=== PATIENT | male | born 1955 | race Caucasian/White ===

== ENCOUNTER 2021-08-23 07:57 | Outpatient (CLI) | payer MEDICARE, SELFPAY ==
--- NOTE | 2021-08-23 08:11 | CT_ITS ---
WS: [id number] CT ABDOMEN CONTRAST TECHNIQUE: Contrast enhanced CT of the abdomen with coronal and sagittal reformatted images. CLINICAL INFORMATION: DYSPHAGIA/GENERALIZED ABDOMINAL PAIN COMPARISON: None. DLP: 1220.[address] scans at [facility] use at least one of these dose optimization techniques: automated e xposure control; mA and/or kV adjustment per patient size (includes targeted exams where dose is matc hed to clinical indication); or iterative reconstruction. FINDINGS: Mild hepatomegaly. Diffuse fatty infiltration liver. Low-attenuation lesions in the liver likely hepa tic cysts the largest right hepatic lobe measuring 2.1 CM. Lung bases are well aerated. Small esophag eal hiatal hernia. Normal spleen. Adrenal glands are normal. Normal renal parenchymal enhancement. No hydronephrosis. Normal pancreas. Gallbladder is contracted. Normal portal vein and splenic vein. Normal caliber abdom inal aorta. Mild aortic calcification. Hypertrophic changes lower thoracic spine. CT/CT abdomen w con* [id number] IMPRESSION: 1. Mild hepatomegaly with diffuse fatty infiltration of the liver. 2. Two Low-attenuation hepatic lesions likely hepatic cysts the largest right hepatic lobe measuring 2.1 CM. 3. Small esophageal hiatal hernia. 4. No hydronephrosis in either kidney. 5. Normal caliber abdominal aorta. 6. No other significant findings.
[2021-08-23 09:24] LABS: Blood Urea Nitrogen 13 mg/dL (8-23)
[2021-08-23] MEDS: iohexol 300 mg/mL 100 mL Btl IV (09:48)
[2021-08-23] MEDS: iohexol 300 mg/mL 50 mL Btl IV (09:48)
== END 2021-08-23 07:58 | disposition home or self-care (01) ==
LOC: RAD 08:07
PROVIDERS: PCP Family Medicine; Visit Provider Family Medicine
DX: R13.10 Dysphagia, unspecified (principal); R10.84 Generalized abdominal pain; R16.0 Hepatomegaly, not elsewhere classified; K76.0 Fatty (change of) liver, not elsewhere classified; K76.9 Liver disease, unspecified
CPT/HCPCS: 74160; 82565; 84520

== ENCOUNTER 2022-04-16 07:42 | Outpatient (CLI) | payer MEDICARE, SELFPAY ==
--- NOTE | 2022-04-16 07:53 | FL_ITS ---
WS: [id number] UPPER GI WITH SMALL BOWEL FOLLOW-THROUGH HISTORY: DYSPHAGIA/GENERALIZED ABDOMINAL PAIN COMPARISON: None available. FLUOROSCOPIC TIME: 3.3 minutes. # of spot films: 19 Double contrast upper GI examination was performed. Patient swallowed the barium mixture with no difficulty. No esophageal stricture or mass. No hilar he rnia or reflux was demonstrated. Stomach distended well with contrast. Duodenal bulb was distensible pliable. No ulceration or mass. Small bowel follow-through. Barium transited the small bowel at 90 minutes. No small bowel strictures or dilatation. No mass or o bstruction. Normal appearance of the right lower quadrant. Appendix not identified. FL/FL upper GI smallbowel series IMPRESSION: 1. Unremarkable upper GI examination. 2. Unremarkable small bowel follow-through.
== END 2022-04-16 07:43 | disposition home or self-care (01) ==
LOC: RAD 07:43
PROVIDERS: PCP Family Medicine; Visit Provider Family Medicine
DX: R13.10 Dysphagia, unspecified (principal); R10.84 Generalized abdominal pain
CPT/HCPCS: 74240; 74248

== ENCOUNTER 2022-06-11 08:29 | Outpatient (CLI) | payer MEDICARE, SELFPAY ==
[2022-06-11] MEDS: iohexol 350 mg/mL 100 mL Btl PO (08:53)
--- NOTE | 2022-06-11 09:00 | CT_ITS ---
WS: [id number] CT ABDOMEN PELVIS TECHNIQUE: Contrast-enhanced CT of the abdomen and pelvis with coronal and sagittal reformatted image s. CLINICAL INFORMATION: abd pain/ liver lesions on CT 9 months ago COMPARISON: CT August 23 2021 DLP: 2323.[address] scans at [facility] use at least one of these dose optimization techniques: automated e xposure control; mA and/or kV adjustment per patient size (includes targeted exams where dose is matc hed to clinical indication); or iterative reconstruction. FINDINGS: Previously described low-attenuation hepatic lesions the largest in the RIGHT hepatic lobe measuring 2.1 cm appear unchanged compared to the prior study. Stable smaller lesion LEFT hepatic lobe measurin g 1.2 CM. These are unchanged on the delayed imaging and likely represent hepatic cysts. Ultrasound c ould be obtained for additional evaluation. Small esophageal hiatal hernia. Lung bases are well aerated. Normal spleen. Adrenal glands are normal . Normal renal parenchymal enhancement. No hydronephrosis. Normal excretion on the delayed images. Prostate calcification. Sigmoid diverticulosis. Tiny fat-containing umbilical hernia. Normal portal v ein and splenic vein. Normal caliber abdominal aorta. No abdominal or pelvic lymphadenopathy. Disc sp joanne narrowing worse L5-S1. CT/CT abdomen pelvis w con* [id number] IMPRESSION: 1. Hepatomegaly with diffuse fatty infiltration liver. 2. Previously described low-attenuation hepatic lesions the largest in the RIG HT hepatic lobe measuring 2.1 cm appear unchanged compared to the prior study. Stable smaller lesion LEFT hepatic lobe measuring 1.2 CM. These are unchanged o n the delayed imaging and likely represent hepatic cysts. Ultrasound could be o btained for additional evaluation. 3. Small esophageal hiatal hernia. 4. Sigmoid diverticulosis. 5. Tiny fat-containing umbilical hernia.
[2022-06-11 09:47] LABS: Blood Urea Nitrogen 10 mg/dL (8-23); Glomerular Filtration Rate 74.8 mL/min (90-130)
[2022-06-11] MEDS: iohexol 350 mg/mL 100 mL Btl IV (10:02)
== END 2022-06-11 08:30 | disposition home or self-care (01) ==
LOC: RAD 08:30
PROVIDERS: PCP Family Medicine; Visit Provider Family Medicine
DX: R16.0 Hepatomegaly, not elsewhere classified (principal); K57.30 Diverticulosis of large intestine without perforation or abscess without bleeding; K42.9 Umbilical hernia without obstruction or gangrene; K76.0 Fatty (change of) liver, not elsewhere classified; K44.9 Diaphragmatic hernia without obstruction or gangrene; K76.9 Liver disease, unspecified
CPT/HCPCS: 74177; 82565; 84520

== ENCOUNTER → 2022-10-24 08:20 | Outpatient (BNVA) | payer MEDICARE, SELFPAY | PROVIDERS: PCP Family Medicine; Visit Provider Family Medicine | DX: R53.83 Other fatigue (principal); R16.0 Hepatomegaly, not elsewhere classified; E78.5 Hyperlipidemia, unspecified | CPT/HCPCS: 80053; 80061; 82607; 84403; 84443; 85025; 86140 ==

== ENCOUNTER → 2022-11-09 09:00 | Outpatient (BNVA) | payer MEDICARE, SELFPAY | PROVIDERS: PCP Family Medicine; Visit Provider Family Medicine | DX: R73.9 Hyperglycemia, unspecified (principal) | CPT/HCPCS: 83036 ==

== ENCOUNTER 2024-05-11 14:12 | Outpatient (CLI) | payer MEDICARE, SELFPAY ==
--- NOTE | 2024-05-11 14:17 | XRR_ITS ---
PROCEDURE INFORMATION: Exam: XR Right Shoulder Exam date and time: 05/11/2024 2:25 PM Age: 69 years old Clinical indication: Right; Prior surgery; Surgery date: 6+ months; Surgery type: Rotator cuff; Patient HX: Pain in shoulder that radiates down the arm, sudden onset after playing with dog. ; Additional info: Right shoulder pain TECHNIQUE: Imaging protocol: Radiologic exam of the right shoulder. Views: 2 or more views. COMPARISON: No relevant prior studies available. FINDINGS: Bones/joints: Marked acromioclavicular and mild glenohumeral narrowing and spurring. No. Two suture anchors in the humeral head. Soft tissues: Normal. Other findings: . XR/XR shoulder RT min 2V* [id number] IMPRESSION: No acute findings.
== END 2024-05-11 14:13 | disposition home or self-care (01) ==
LOC: RAD 14:14
PROVIDERS: PCP Family Medicine; Visit Provider Family Medicine
DX: M19.011 Primary osteoarthritis, right shoulder (principal); Z98.890 Other specified postprocedural states
CPT/HCPCS: 73030

== ENCOUNTER 2024-05-29 07:07 | Outpatient (CLI) | payer MEDICARE, SELFPAY ==
--- NOTE | 2024-05-29 07:15 | MR_ITS ---
WS: [id number] MRI RIGHT SHOULDER NONCONTRAST TECHNIQUE: Sagittal T2, coronal T1, T2 and proton density imaging. Axial gradient PDE imaging. CLINICAL INFORMATION: shoulder pain COMPARISON: Radiograph 05/11/2024 and MRI 2011 FINDINGS: Images are graded by susceptibility artifact from prior rotator cuff anchors. Postoperative changes AC joint with fluid and edema. Dorsal synovial cyst at the AC joint measuring 12 x 15 mm. Rotator cuff anchors. Supraspinatus repair appears intact. Infraspinatus appears intact. Normal teres minor. Subscapularis tendon appears intact. Biceps tendon intact within the bicipital gr oove. Tiny diminutive intra-articular biceps tendon. Moderate degenerative narrowing of the glenohumeral articulation. No significant joint effusion. No a cute fractures. Normal bone marrow signal in the humeral head. MR/MR shoulder RT wo con* [id number] IMPRESSION: 1. Rotator cuff repair appears intact. Supraspinatus and infraspinatus appear intact. 2. Rotator cuff is otherwise normal. 3. Intra-articular biceps tendon appears intact in the bicipital groove. 4. Tiny diminutive intra-articular biceps tendon. 5. Moderate degenerative narrowing glenohumeral to collation. 6. Prior postoperative changes AC joint with dorsal lobulated synovial cyst me asuring 12 x 15 mm with synovial thickening and hypertrophic changes.
== END 2024-05-29 07:08 | disposition home or self-care (01) ==
LOC: RAD 07:08
PROVIDERS: PCP Family Medicine; Visit Provider Family Medicine
DX: M19.011 Primary osteoarthritis, right shoulder (principal); M67.411 Ganglion, right shoulder; Z98.890 Other specified postprocedural states
CPT/HCPCS: 73221

== ENCOUNTER → 2025-04-08 11:30 | Outpatient (BNVA) | payer MEDICARE, SELFPAY | PROVIDERS: PCP Family Medicine; Visit Provider Family Medicine | DX: K63.5 Polyp of colon (principal); E78.5 Hyperlipidemia, unspecified; F10.10 Alcohol abuse, uncomplicated; R73.9 Hyperglycemia, unspecified; R53.83 Other fatigue; R35.1 Nocturia | CPT/HCPCS: 80053; 80061; 83036; 83880; 84153; 84443; 85025 ==

== ENCOUNTER → 2025-04-14 10:36 | Outpatient (BNVA) | payer MEDICARE, SELFPAY | PROVIDERS: PCP Family Medicine; Visit Provider Family Medicine | DX: R73.03 Prediabetes (principal) | CPT/HCPCS: 83036 ==